=== PATIENT | female | born 1950 | race Caucasian/White ===

== ENCOUNTER 2017-02-04 18:59 | Emergency (ER) | payer MEDICARE, OTHER | END 2017-02-04 21:38 | disposition home or self-care (01) | LOC: D.ER 18:59 | DX: T14.8 Other injury of unspecified body region (principal); S16.1XXA Strain of muscle, fascia and tendon at neck level, initial encounter; V43.52XA Car driver injured in collision with other type car in traffic accident, initial encounter; Y93.89 Activity, other specified; Y92.410 Unspecified street and highway as the place of occurrence of the external cause; I10 Essential (primary) hypertension; E11.9 Type 2 diabetes mellitus without complications ==